=== PATIENT | female | born 1975 | race Asian ===

== ENCOUNTER 2018-03-13 01:34 | Emergency (ER) | payer OTHER ==
[2018-03-13 03:09] LABS: ADD MAN DIFF? NO
[2018-03-13 03:11] LABS: ABNORMAL IP MESSAGE 1; BASOPHILS % 0.1 % (0.0-2.0); LYMPHOCYTES # 0.5 10^3/ul (0.8-2.9); LYMPHOCYTES % 2.9 % (15.0-51.0); MEAN CORPUSCULAR HEMOGLOBIN 30.1 pg (29.0-33.0); MEAN CORPUSCULAR HGB CONC 34.1 g/dl (32.0-37.0); MEAN CORPUSCULAR VOLUME 88.4 fl (82.0-101.0); MEAN PLATELET VOLUME 10.1 fl (7.4-10.4); MONOCYTE # 0.6 10^3/ul (0.3-0.9); MONOCYTES % 3.2 % (0.0-11.0); NEUTROPHIL # 16.1 10^3/ul (1.6-7.5); PLATELET COUNT 291 10^3/UL (140-415); RED BLOOD COUNT 4.98 10^6/ul (4.20-5.40); RED CELL DISTRIBUTION WIDTH 12.3 % (11.5-14.5)
[2018-03-13 03:11] LABS: WHITE BLOOD COUNT 17.3 10^3/ul (4.8-10.8)
[2018-03-13 03:16] LABS: POSITIVE DIFF @See below
[2018-03-13 03:24] LABS: ADD UMIC YES; UR ASCORBIC ACID 40 mg/dL (NEGATIVE); UR BACTERIA FEW /HPF (NONE SEEN); UR BILIRUBIN (Dip) NEGATIVE (NEGATIVE); UR BLOOD (Dip) 1+ mg/dL (NEGATIVE); UR CLARITY SLIGHTLY CLOUDY (CLEAR); UR COLOR YELLOW (YELLOW); UR GLUCOSE (Dip) NEGATIVE (NEGATIVE); UR KETONES (Dip) 1+ mg/dL (NEGATIVE); UR LEUKOCYTE ESTERASE (Dip) 2+ Leu/ul (NEGATIVE); UR MUCUS FEW /HPF (NONE SEEN); UR NITRITE (Dip) NEGATIVE (NEGATIVE); UR RBC 31 /HPF (0-5); UR SPECIFIC GRAVITY (Dip) 1.019 (1.003-1.030); UR SQUAMOUS EPITHELIAL CELL FEW /HPF (FEW); UR TOTAL PROTEIN (Dip) 2+ mg/dl (NEGATIVE); UR UROBILINOGEN (Dip) 2+ mg/dL (NEGATIVE); UR WBC 131 /HPF (0-5)
[2018-03-13 03:31] LABS: ALANINE AMINOTRANSFERASE 181 IU/L (13-69); ALBUMIN 5.2 g/dl (3.3-4.9); ALBUMIN/GLOBULIN RATIO 1.33; ALKALINE PHOSPHATASE 150 IU/L (42-121); ANION GAP 17 (8-16); ASPARTATE AMINO TRANSFERASE 106 IU/L (15-46); BILIRUBIN,INDIRECT 0.8 mg/dl (0-1.1); BILIRUBIN,TOTAL 0.8 mg/dl (0.2-1.3); BLOOD UREA NITROGEN 13 mg/dl (7-20); CALCIUM 10.2 mg/dl (8.4-10.2); CARBON DIOXIDE 22 mmol/L (21-31); CHLORIDE 106 mmol/L (97-110); CREATININE 0.64 mg/dl (0.44-1.00); GLUCOSE 119 mg/dl (70-220); LIPASE 36 U/L (23-300); POTASSIUM 4.3 mmol/L (3.5-5.1); SODIUM 141 mmol/L (135-144); TOTAL PROTEIN 9.1 g/dl (6.1-8.1)
[2018-03-13] MEDS: CEFTRIAXONE 1 GM INJ IM (04:43)
== END 2018-03-13 05:15 | disposition home or self-care (01) ==
LOC: FTE 01:34
DX: N23 Unspecified renal colic (principal)
CPT/HCPCS: 36415; 74176; 80053; 81001; 81025; 83690; 85025; 96372; 99285-25

== ENCOUNTER 2018-05-15 18:11 | Emergency (ER) | payer OTHER ==
[2018-05-15] MEDS: KETOROLAC 15 MG INJ IV ×2 (22:10→23:06)
[2018-05-15] MEDS: ONDANSETRON 4 MG INJ IV (22:10)
[2018-05-15] MEDS: SOD CHLORIDE 0.9% 1,000 ML IV (22:11)
[2018-05-15 22:17] LABS: ADD MAN DIFF? NO
[2018-05-15 22:18] LABS: WHITE BLOOD COUNT 6.6 10^3/ul (4.8-10.8)
[2018-05-15 22:18] LABS: BASOPHILS % 0.6 % (0.0-2.0); EOSINOPHILS # 0.3 10^3/ul (0.0-0.5); EOSINOPHILS % 3.8 % (0.0-7.0); HEMOGLOBIN 13.3 g/dl (12.0-16.0); LYMPHOCYTES # 1.6 10^3/ul (0.8-2.9); LYMPHOCYTES % 24.3 % (15.0-51.0); MEAN CORPUSCULAR HEMOGLOBIN 29.8 pg (29.0-33.0); MEAN CORPUSCULAR HGB CONC 33.3 g/dl (32.0-37.0); MEAN CORPUSCULAR VOLUME 89.7 fl (82.0-101.0); MEAN PLATELET VOLUME 10.1 fl (7.4-10.4); MONOCYTE # 0.9 10^3/ul (0.3-0.9); MONOCYTES % 13.3 % (0.0-11.0); NEUTROPHIL # 3.8 10^3/ul (1.6-7.5); NEUTROPHILS % 57.7 % (39.0-77.0); PLATELET COUNT 230 10^3/UL (140-415); RED BLOOD COUNT 4.46 10^6/ul (4.20-5.40); RED CELL DISTRIBUTION WIDTH 12.8 % (11.5-14.5)
[2018-05-15 22:26] LABS: ADD UMIC YES; UR ASCORBIC ACID NEGATIVE (NEGATIVE); UR BACTERIA FEW /HPF (NONE SEEN); UR BILIRUBIN (Dip) NEGATIVE (NEGATIVE); UR BLOOD (Dip) 3+ mg/dL (NEGATIVE); UR CLARITY SLIGHTLY CLOUDY (CLEAR); UR COLOR YELLOW (YELLOW); UR GLUCOSE (Dip) NEGATIVE (NEGATIVE); UR KETONES (Dip) TRACE mg/dL (NEGATIVE); UR LEUKOCYTE ESTERASE (Dip) 3+ Leu/ul (NEGATIVE); UR NITRITE (Dip) POSITIVE (NEGATIVE); UR RBC 100 /HPF (0-5); UR SPECIFIC GRAVITY (Dip) 1.015 (1.003-1.030); UR SQUAMOUS EPITHELIAL CELL FEW /HPF (FEW); UR TOTAL PROTEIN (Dip) 1+ mg/dl (NEGATIVE); UR UROBILINOGEN (Dip) 1+ mg/dL (NEGATIVE); UR WBC > 182 /HPF (0-5)
[2018-05-15 22:37] LABS: ALANINE AMINOTRANSFERASE 277 IU/L (13-69); ALBUMIN 4.3 g/dl (3.3-4.9); ALBUMIN/GLOBULIN RATIO 1.26; ALKALINE PHOSPHATASE 222 IU/L (42-121); ANION GAP 17 (8-16); ASPARTATE AMINO TRANSFERASE 127 IU/L (15-46); BILIRUBIN,INDIRECT 0.3 mg/dl (0-1.1); BILIRUBIN,TOTAL 0.3 mg/dl (0.2-1.3); BLOOD UREA NITROGEN 12 mg/dl (7-20); CALCIUM 9.3 mg/dl (8.4-10.2); CARBON DIOXIDE 23 mmol/L (21-31); CHLORIDE 109 mmol/L (97-110); CREATININE 0.59 mg/dl (0.44-1.00); GLUCOSE 96 mg/dl (70-220); LIPASE 53 U/L (23-300); POTASSIUM 3.9 mmol/L (3.5-5.1); SODIUM 145 mmol/L (135-144); TOTAL PROTEIN 7.7 g/dl (6.1-8.1)
[2018-05-16] MEDS: ONDANSETRON 4 MG INJ IV (00:30)
[2018-05-16] MEDS: morphine 4 MG/ML VIAL IV (00:31)
[2018-05-16] MEDS: CEFTRIAXONE 1 GM/50 ML (PMX) 50 ML IVPB (00:31)
[2018-05-16] MEDS: HYDROmorphONE 0.5 MG/0.5 ML SYG IV (02:09)
== END 2018-05-16 02:54 | disposition home or self-care (01) ==
LOC: FTE 05-16 02:54
DX: N13.2 Hydronephrosis with renal and ureteral calculous obstruction (principal); N30.01 Acute cystitis with hematuria
CPT/HCPCS: 36415; 74176; 80053; 81001; 81025; 83690; 85025; 96374; 96375; 96376; 99285-25

== ENCOUNTER 2018-07-30 06:19 | Day surgery (SDC) | payer OTHER ==
[2018-07-30] MEDS ORDERED: CIPROFLOXACIN 400 MG in D5W 200 ML IVPB (07:00)
[2018-07-30] MEDS ORDERED: LIDOCAINE 2% (SDV) 5 ML INJ (07:00)
[2018-07-30] MEDS ORDERED: DEXAMETHASONE 4 MG/ML 1 ML INJ (07:00)
[2018-07-30] MEDS ORDERED: ONDANSETRON 4 MG INJ (07:00)
[2018-07-30] MEDS ORDERED: PROPOFOL 100 ML (07:59)
[2018-07-30] MEDS: IOHEXOL 300MG/ML 30 ML BTL (08:22)
[2018-07-30] MEDS ORDERED: SUGAMMADEX SODIUM 200 MG/2 ML VIAL IV (08:40)
[2018-07-30] MEDS ORDERED: ROCURONIUM 50 MG INJ (08:40)
[2018-07-30] MEDS ORDERED: CIPROFLOXACIN 400MG/D5W 200 ML (08:40)
[2018-07-30] MEDS ORDERED: MEPERIDINE 25 MG INJ IV (09:00)
[2018-07-30] MEDS ORDERED: MIDAZOLAM 1 MG/ML 2 ML INJ IV (09:00)
[2018-07-30] MEDS ORDERED: OXYCODONE/ACETAMINOPHEN (5/325) TAB PO ×2 (09:00)
[2018-07-30] MEDS ORDERED: FENTAnyl 50 MCG/ML VIAL IV ×2 (09:00)
[2018-07-30] MEDS ORDERED: ALBUTEROL 0.083% (NEB) 2.5 MG/3 ML AMP HHN (09:00)
[2018-07-30] MEDS ORDERED: hydrALAzine 20 MG INJ IV (09:00)
[2018-07-30] MEDS ORDERED: LABETALOL HCL 20MG INJ IV (09:00)
[2018-07-30] MEDS ORDERED: DIPHENHYDRAMINE 50 MG INJ IV (09:00)
[2018-07-30] MEDS ORDERED: HYDROmorphONE 1 MG/5 ML IV SYRINGE IV ×2 (09:00)
[2018-07-30] MEDS: FENTAnyl 50 MCG/ML VIAL IV (09:09)
[2018-07-30] MEDS: ONDANSETRON 4 MG INJ IV ×2 (09:41→12:29)
[2018-07-30] MEDS: KETOROLAC 30 MG INJ IV (09:41)
[2018-07-30] MEDS: HYDROmorphONE 1 MG/5 ML IV SYRINGE IV (10:39)
== END 2018-07-30 13:14 | disposition home or self-care (01) ==
LOC: SDS 06:19
DX: N20.0 Calculus of kidney (principal); N13.5 Crossing vessel and stricture of ureter without hydronephrosis
CPT/HCPCS: 52344

== ENCOUNTER 2018-09-10 06:39 | Day surgery (SDC) | payer OTHER ==
[2018-09-10] MEDS: CIPROFLOXACIN 400 MG in D5W 200 ML IVPB (07:00)
[2018-09-10] MEDS ORDERED: LIDOCAINE 2% (SDV) 5 ML INJ (07:00)
[2018-09-10] MEDS ORDERED: CIPRO 400 MG/200 ML D5W IVPB (07:00)
[2018-09-10] MEDS ORDERED: SEVOFLURANE 15 MIN (07:00)
[2018-09-10] MEDS ORDERED: MIDAZOLAM 1 MG/ML 2 ML INJ (08:02)
[2018-09-10] MEDS ORDERED: PROPOFOL 20 ML (08:02)
[2018-09-10] MEDS ORDERED: FENTAnyl 50 MCG/ML VIAL (08:02)
[2018-09-10] MEDS ORDERED: METOCLOPRAMIDE 10 MG INJ (08:06)
[2018-09-10] MEDS ORDERED: DIPHENHYDRAMINE 50 MG INJ IV (09:30)
[2018-09-10] MEDS ORDERED: FENTAnyl 50 MCG/ML VIAL IV (09:30)
[2018-09-10] MEDS: IOHEXOL 300MG/ML 30 ML BTL (10:05)
[2018-09-10] MEDS: MEPERIDINE 25 MG INJ IV (11:32)
[2018-09-10] MEDS: ONDANSETRON 4 MG INJ IV (11:33)
[2018-09-10] MEDS: HYDROmorphONE 1 MG/5 ML IV SYRINGE IV ×3 (11:33→12:09)
[2018-09-10] MEDS: FENTAnyl 50 MCG/ML VIAL IV ×2 (12:18→12:37)
[2018-09-10] MEDS: KETOROLAC 30 MG INJ IV (13:30)
== END 2018-09-10 13:50 | disposition home or self-care (01) ==
LOC: SDS 06:39
DX: N20.0 Calculus of kidney (principal)
CPT/HCPCS: 52005; 74430